=== PATIENT | male | born 1950 | race Caucasian/White ===

== ENCOUNTER 2019-06-04 07:24 | Day surgery (SDC) | payer MEDICARE, OTHER ==
[~2019-06-04] VITALS: Ht 172.7 cm; Wt 79.8 kg
[~2019-06-04 07:24] MED LIST: FAMO40 PO; GLUC500 PO; L ARGININE PO; THERA1 EACH PO
--- NOTE | 2019-06-04 08:21 | NUR ---
History, Chart, Medications and Allergies reviewed before start of procedure. Lungs clear T/O to Auscultation. Patient confirms NPO status and agrees with scheduled surgery. Pre-Op teaching done. Pt verbalizes understanding. Patient reports completing Chlorhexadine shower X2 prior to admission to hospital.
--- NOTE | 2019-06-04 11:18 | NUR ---
RECIEVED PATIENT AND REPORT FROM [facility] PATIENT ALERT ORIENTED DRESSING INTACT
--- NOTE | 2019-06-04 12:21 | NUR ---
PATIENT DRESSED AND ADISCHARGE INSTRUCTIONS GONE OVER WITH AND ALL QUESTIONS ANSWERED. Discharge instructions reviewed with patient. Patient verbalizes understanding. Copy given to patient to take home. Patient States Post-Procedure ride home has been arranged. Discharged via wheelchair to private car for ride home.
== END 2019-06-04 12:25 | disposition home or self-care (01) ==
LOC: ORSCMMR 07:24 → ORD 09:00 → ORSCMMR 09:00
PROVIDERS: Surgery
PROC: 0YU60JZ Supplement Left Inguinal Region with Synthetic Substitute, Open Approach (ICD-10-PCS; principal; 2019-06-04 09:00)
DX: K40.90 Unilateral inguinal hernia, without obstruction or gangrene, not specified as recurrent (principal); F17.220 Nicotine dependence, chewing tobacco, uncomplicated; K21.9 Gastro-esophageal reflux disease without esophagitis; Z79.899 Other long term (current) drug therapy
CPT/HCPCS: A9270-GY; C1781; J0690; J1100; J2250; J2370; J2405; J2704; J3010; J7120